=== PATIENT | male | born 1980 | race Caucasian/White ===

== ENCOUNTER 2017-07-02 15:40 | Emergency (ER) | payer OTHER ==
[~2017-07-02] VITALS: Ht 160 cm; Wt 75.7 kg
[2017-07-02 15:53] VITALS: BP 127/72; Ht 160 cm; Wt 75.7 kg
== END 2017-07-02 17:23 | disposition home or self-care (01) ==
LOC: ED 15:40
DX: S61.552A Open bite of left wrist, initial encounter (principal); W54.0XXA Bitten by dog, initial encounter; Y93.89 Activity, other specified; Y99.8 Other external cause status; Y92.89 Other specified places as the place of occurrence of the external cause

== ENCOUNTER 2017-08-04 21:01 | Emergency (ER) | payer OTHER ==
[~2017-08-04] VITALS: Ht 160 cm; Wt 74.4 kg
[2017-08-04 21:36] VITALS: Ht 160 cm; Wt 74.4 kg
[2017-08-04 23:59] VITALS: BP 125/58
== END 2017-08-04 23:59 | disposition home or self-care (01) ==
LOC: ED 21:01
DX: G62.89 Other specified polyneuropathies (principal); M77.9 Enthesopathy, unspecified; Z88.1 Allergy status to other antibiotic agents
CPT/HCPCS: A4570

== ENCOUNTER 2018-11-05 16:39 | Emergency (ER) | payer OTHER ==
[~2018-11-05] VITALS: Ht 160 cm; Wt 78.5 kg
[2018-11-05 16:52] VITALS: Ht 160 cm; Wt 78.5 kg
[2018-11-05 20:28] LABS: BASOPHIL % 0.5 % (0-2); PLATELET COUNT 240 x10^3mcL (130-400); RED CELL DISTRIBUTION WIDTH 13.4 % (11.5-14.5)
[2018-11-05 20:32] LABS: CALCIUM 9.2 mg/dL (8.5-10.1); CARBON DIOXIDE 25.4 mmol/L (21-32); CHLORIDE SERUM 102 mmol/L (98-107); GFR1 > 60 mL/min; GLUCOSE SERUM 100 mg/dL (74-106); POTASSIUM SERUM 3.9 mmol/L (3.5-5.1); SODIUM SERUM 140 mmol/L (136-145)
[2018-11-05 20:36] LABS: ALKALINE PHOSPHATASE 100 U/L (46-116); ALT/SGPT 34 U/L (16-63); AST/SGOT 10 U/L (15-37); LIPASE 49 IU/L (73-393)
[2018-11-05 23:34] VITALS: BP 108/76
== END 2018-11-05 23:34 | disposition home or self-care (01) ==
LOC: ED 16:39
PROVIDERS: Emergency Medicine
DX: K57.32 Diverticulitis of large intestine without perforation or abscess without bleeding (principal); Z88.1 Allergy status to other antibiotic agents; Z90.89 Acquired absence of other organs
CPT/HCPCS: J0500; J1885; J3490; J7030

== ENCOUNTER 2019-05-02 16:03 | Emergency (ER) | payer OTHER ==
[~2019-05-02] VITALS: Ht 160 cm; Wt 79.8 kg
[2019-05-02 16:31] VITALS: Ht 160 cm; Wt 79.8 kg
[2019-05-02 17:30] VITALS: BP 129/75
== END 2019-05-02 17:30 | disposition home or self-care (01) ==
LOC: ED 16:03
DX: S51.831A Puncture wound without foreign body of right forearm, initial encounter (principal); S50.811A Abrasion of right forearm, initial encounter; Z90.89 Acquired absence of other organs; Z88.1 Allergy status to other antibiotic agents; W54.0XXA Bitten by dog, initial encounter; Y93.89 Activity, other specified; Y92.89 Other specified places as the place of occurrence of the external cause; Y99.8 Other external cause status